=== PATIENT | male | born 1980 | race Caucasian/White ===

== ENCOUNTER 2019-03-20 13:56 | Emergency (ER) | payer SELFPAY ==
[2019-03-20 15:01] VITALS: BP 156/11; PULSE 94; RESP 16; TEMP 36.7; O2SAT 98; BMI 34.8
[2019-03-20 15:41] LABS: INR 1.01 (0.8-1.2)
[2019-03-20 15:42] LABS: Partial Thromboplastin Time 29.8 SECONDS (23.9-36.7)
--- NOTE | 2019-03-20 18:10 | ED_ITS ---
Entered by [id number], acting as scribe for Patrick Fernandes MD Mar 20, 2019 13:56 HPI - Extremity Problem General: Chief complaint: Extremity Problem,Nontraumatic Stated complaint: L leg pain Time Seen by Provider: 03/20/19 18:18 Source: patient Mode of arrival: ambulatory Limitations: no limitations History of Present Illness: HPI Narrative: 38-year-old male who has had right knee pain for the last 3 to 5 days. 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 Patient has a history of gout as well and a has been taking indomethacin. Patient denies any fevers. States that it is worse when he straightens or bends his leg. Associated symptoms: Deny chest pain, fever(s) or rash Review of Systems Const: Denies: fever or chills Eyes: Denies: change in vision ENMT: Denies: throat pain or mouth pain Card: Denies: chest pain Resp: Denies: shortness of breath GI: Denies: abdominal pain, nausea, vomiting or diarrhea Musc: Reports: joint pain and joint swelling; Denies: back pain Skin/Breast: Denies: rash Neuro: Denies: headache or behavioral changes Psych: Denies: depression Endo: Denies: excessive urination Joe/Lymph: Denies: easy bruising All/Imm: Denies: hives PFSH ED PFSH: Statuses (acute, chronic, etc) shown below reflect problem list status as previously entered and may not be historically accurate Medical History Dental caries (Acute) Gout (Acute) Social History Smoking and tobacco status: never smoked Physical Exam Const: COMMON NORMALS: no apparent distress and healthy appearing HENMT: COMMON NORMALS: normocephalic and external nose normal HEAD & SCALP: normocephalic NOSE: external nose normal and no nasal discharge (nasal dischage) Eye: COMMON NORMALS: PERRL PUPIL: Yes PERRL Neck/C-Spine: COMMON NORMALS: full ROM and no lymphadenopathy Chest: COMMONS NORMALS: inspection of chest normal Resp: COMMON NORMALS: normal respiratory effort and clear to auscultation bilaterally AUSCULTATION: clear to auscultation bilaterally Cardio: COMMON NORMALS: regular rate and regular rhythm RATE: regular rate RHYTHM: regular rhythm GI: COMMON NORMALS: soft to palpation PALPATION: Yes soft Extremity: COMMON NORMALS: normal capillary refill NARRATIVE EXTREMITY EXAM: Tenderness over right knee. No warmth to touch. Does have some swelling posterior to the knee. Psych: COMMON NORMALS: mental status grossly normal and cooperative Skin: COMMON NORMALS: no rashes or lesions noted GENERAL SKIN EXAM: no rashes or lesions noted Course Vital Signs: Vital signs: Vital Signs Temperature 98.1 F 03/20/19 15:01 Pulse Rate 94 03/20/19 20:24 Respiratory Rate 16 03/20/19 20:24 Blood Pressure 162/105 03/20/19 20:24 Pulse Oximetry 95 03/20/19 20:24 MDM - Extremity (Nontraumatic) MDM Narrative: Medical decision making narrative: Patient presents here with a clot in the superficial vein posterior knee. Patient is very sedentary and concerned this clot could advance and will place him on Eliquis. He is to follow very closely with his PCP and have repeat ultrasounds. Patient is stable for discharge and return if worsening. Lab Data: Labs: Lab Results 03/20/19 03/20/19 Range/Units 15:23 15:24 WBC 8.4 (4.0-10.0) 10^3/ uL RBC 4.59 (4.1-5.3) 10^6/u L Hgb 14.6 (11.7-16.6) g/dL Hct 43.0 (42.0-52.0) % MCV 93.7 (80-94) fL MCH 31.8 (28.0-34.0) pg MCHC 34.0 (30.0-36.0) g/dL RDW 12.5 (12.1-15.1) % Plt Count 278 (130-400) 10^3/c mm MPV 10.5 H (7.4-10.4) fL Neut % (Auto) 58.8 % Lymph % (Auto) 24.1 % [place] % (Auto) 15.3 % Eos % (Auto) 1.0 % Baso % (Auto) 0.4 % Neut # (Auto) 4.9 (1.8-7.7) 10^3/u L Lymph # (Auto) 2.0 (0.8-4.8) 10^3/u L [place] # (Auto) 1.3 H (0.2-0.9) 10^3/u L Eos # (Auto) 0.1 (0.0-0.8) 10^3/u L Baso # (Auto) 0.0 (0.0-0.1) 10^3/u L Nucleated RBC % (a uto) 0 % Nucleated RBCs # 0.0 /100WBC PT 13.60 H (10.5-13.3) SECO NDS INR 1.01 (0.8-1.2) APTT 29.8 (23.9-36.7) SECO NDS Discharge Plan Discharge Patient Disposition: Home, Self-Care Clinical Impression: Deep vein thrombosis of lower extremity Qualifiers: Chronicity: acute Laterality: unspecified laterality Condition: Stable Prescriptions: New Eliquis 5 mg (74 tabs) tablets,dose pack See Rx Instructions .ROUTE .COMPLEX Qty: 74 RF: 0 Discharge Orders: Discharge Order (Routine); Ordered 03/20/19 Ordered By: Patrick Fernandes Discharge Diet: Advance as tolerated Discharge Activity: Resume usual activity Patient Instructions: Deep Venous Thrombosis (ED) Discharge Date/Time: 03/20/19 20:09 Coding Level of Care Code ED Sanitation Worker Cleaning Equipment for Oralia Cruz The documentation recorded by the rocioibtigre, [id number], accurately reflects the service I personally performed and the decisions made by Dom sena Korby, MD Mar 20, 2019 13:56
--- NOTE | 2019-03-20 18:10 | ED_ITS ---
Entered by Jazmine Savage, acting as scribe for Patrick Fernandes MD Mar 20, 2019 13:56 HPI - Extremity Problem General: Chief complaint: Extremity Problem,Nontraumatic Stated complaint: L leg pain Time Seen by Provider: 03/20/19 18:18 History of Present Illness: HPI Narrative: 38 yo male presents with left knee pain and swelling. Pt states that he went to see his PCP at [facility] yesterday. Pt states that his knee has turned red and has gotten more painful today. Pt states that he called his PCP today, the recommened him to be seen here today. 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) Review of Systems Resp: Denies: dyspnea GI: Denies: abdominal pain, vomiting or diarrhea Neuro: Denies: headache(s) PFSH ED PFSH: Statuses (acute, chronic, etc) shown below reflect problem list status as previously entered and may not be historically accurate Medical History (Updated 03/28/19 @ 00:00 by ) Dental caries Gout Social History Smoking and tobacco status: never smoked Physical Exam Const: COMMON NORMALS: no acute distress and healthy appearing HENMT: COMMON NORMALS: normocephalic and Normal external nose present HEAD & SCALP: normocephalic NOSE: Normal external nose present and No nasal discharge present (nasal dischage) Eye: COMMON NORMALS: Equal, round and reactive pupils present PUPIL: Yes Equal, round and reactive pupils present Neck/C-Spine: COMMON NORMALS: full ROM and no lymphadenopathy Chest: COMMONS NORMALS: normal inspection of the chest Resp: COMMON NORMALS: normal respiratory effort and clear to auscultation bilaterally AUSCULTATION: clear to auscultation bilaterally Cardio: COMMON NORMALS: regular rate and regular rhythm RATE: regular rate RHYTHM: regular rhythm GI: COMMON NORMALS: Soft to palpation PALPATION: Yes Soft to palpation Extremity: COMMON NORMALS: capillary refill normal; negative for normal to inspection and negative for full ROM Psych: COMMON NORMALS: mental status grossly normal and cooperative Skin: COMMON NORMALS: no rashes or lesions noted GENERAL SKIN EXAM: no rashes or lesions noted Course Vital Signs: Vital signs: Vital Signs Temperature 98.1 F 03/20/19 15:01 Pulse Rate 94 03/20/19 20:24 Respiratory Rate 16 03/20/19 20:24 Blood Pressure 162/105 03/20/19 20:24 Pulse Oximetry 95 03/20/19 20:24 MDM - Extremity (Nontraumatic) Lab Data: Labs: Lab Results 03/20/19 03/20/19 Range/Units 15:23 15:24 WBC 8.4 (4.0-10.0) 10^3/ uL RBC 4.59 (4.1-5.3) 10^6/u L Hgb 14.6 (11.7-16.6) g/dL Hct 43.0 (42.0-52.0) % MCV 93.7 (80-94) fL MCH 31.8 (28.0-34.0) pg MCHC 34.0 (30.0-36.0) g/dL RDW 12.5 (12.1-15.1) % Plt Count 278 (130-400) 10^3/c mm MPV 10.5 H (7.4-10.4) fL Neut % (Auto) 58.8 % Lymph % (Auto) 24.1 % [place] % (Auto) 15.3 % Eos % (Auto) 1.0 % Baso % (Auto) 0.4 % Neut # (Auto) 4.9 (1.8-7.7) 10^3/u L Lymph # (Auto) 2.0 (0.8-4.8) 10^3/u L [place] # (Auto) 1.3 H (0.2-0.9) 10^3/u L Eos # (Auto) 0.1 (0.0-0.8) 10^3/u L Baso # (Auto) 0.0 (0.0-0.1) 10^3/u L Nucleated RBC % (a uto) 0 % Nucleated RBCs # 0.0 /100WBC PT 13.60 H (10.5-13.3) SECO NDS INR 1.01 (0.8-1.2) APTT 29.8 (23.9-36.7) SECO NDS Discharge Plan Discharge Patient Disposition: Home Clinical Impression: Deep vein thrombosis of lower extremity Condition: Stable Prescriptions: New Eliquis DVT-PE Treat 30D Start 5 mg (74 tabs) tablets,dose pack See Rx Instructions .ROUTE .COMPLEX Qty: 74 RF: 0 Discharge Orders: Discharge Order (Routine); Ordered 03/20/19 Ordered By: Patrick Fernandes Discharge ED (Routine); Ordered 03/31/20 Ordered By: Patrick Fernandes Discharge Diet: Advance as tolerated Discharge Activity: Resume usual activity Patient Instructions: Deep Venous Thrombosis (ED) Coding Level of Care Code ED Sap Pp Consultant for Chg Fwd Exam Problem Focused The documentation recorded by the Hussein bowen Kialy, accurately reflects the service I personally performed and the decisions made by Dom sena Korby, MD Mar 20, 2019 13:56
--- NOTE | 2019-03-20 18:23 | USCV_ITS ---
Wali Canales Age: 38 Gender: M : 1980 Exam Date: 03/20/2019 18:23 Ordering Phys: Patrick Fernandes MD Technologist: Belinda An Exam Location: [facility] – [place] Indication: SWELLING HISTORY: Lower extremity swelling. PROCEDURES: Venous duplex imaging was performed in only the left lower extremity. The following venous structures were evaluated: common femoral vein, profunda vein, proximal portion of the greater saphenous vein, superficial femoral vein, and the popliteal vein. In addition, the posterior tibial and peroneal trunk were evaluated. Serial compression, augmentation maneuvers, and spectral Doppler flow evaluation were performed. FINDINGS: Normal 2-D Doppler and augmentation and compressibility throughout the lower extremity venous structures. Additional imaging through the proximal calf veins also reveals no thrombus. Limited evaluation of the greater saphenous vein is patent with no thrombus. Evidence of SVT see in a accessory johnny of the GSV at the knee/above the knee level. CONCLUSIONS No DVT left lower extremity. Focal superficial thrombophlebitis accessory vein GSV. Dr. Ella Delgadillo DO (Electronically Signed) Final Date: 21 March 2019 08:50 S
[2019-03-20 18:40] LABS: Basophils % 0.4 %; Eosinophils # 0.1 10^3/uL (0.0-0.8); Hemoglobin 14.6 g/dL (11.7-16.6); Lymphocytes % 24.1 %; Mean Corpuscular Hemoglobin 31.8 pg (28.0-34.0); Mean Corpuscular Volume 93.7 fL (80-94); Mean Platelet Volume 10.5 fL (7.4-10.4); Monocytes # 1.3 10^3/uL (0.2-0.9); Monocytes % 15.3 %; Neutrophils # 4.9 10^3/uL (1.8-7.7); Neutrophils % 58.8 %; Nucleated Red Blood Cells % 0 %; Platelet Count 278 10^3/cmm (130-400); Red Blood Count 4.59 10^6/uL (4.1-5.3); Red Cell Distribution Width 12.5 % (12.1-15.1); White Blood Count 8.4 10^3/uL (4.0-10.0)
[2019-03-20] MEDS: HYDROcodone-acetaminophen 5-325 mg Tablet 1 TAB PO (19:53)
[2019-03-20 20:24] VITALS: BP 162/105; PULSE 94; RESP 16; O2SAT 95
== END 2019-03-20 20:09 | disposition home or self-care (01) ==
PROVIDERS: Emergency Medicine; Emergency Provider Emergency Medicine
DX: I82.402 Acute embolism and thrombosis of unspecified deep veins of left lower extremity (principal)
CPT/HCPCS: 36415; 85025; 85610; 85730; 93971; 99281; 99283

== ENCOUNTER 2019-04-15 11:04 | Outpatient (CLI) | payer SELFPAY ==
--- NOTE | 2019-04-15 11:16 | USCV_ITS ---
Wali Canales Age: 38 Gender: M : 1980 Exam Date: 04/15/2019 11:36 Ordering Phys: Daphney Camacho NP Technologist: Susie Linares [place] [facility] [place]: FU ON DVT HISTORY: History of superficial thrombus in assc of Lt GSV PROCEDURES: Venous duplex imaging was performed in only the left lower extremity. The following venous structures were evaluated: common femoral vein, profunda vein, proximal portion of the greater saphenous vein, superficial femoral vein, and the popliteal vein. In addition, the posterior tibial and peroneal trunk were evaluated. Serial compression, augmentation maneuvers, and spectral Doppler flow evaluation were performed. FINDINGS: No DVT noted in any vessel examined No superficial thrombus seen in any vessel examined CONCLUSIONS No evidence of left lower extremity DVT or superficial thrombus. Jimmie Berumen MD (Electronically Signed) Final Date: 15 April 2019 13:02 S
== END 2019-04-15 11:05 | disposition home or self-care (01) ==
LOC: RAD 11:11
PROVIDERS: PCP Nurse Practitioner Family; Visit Provider Nurse Practitioner Family
DX: I82.409 Acute embolism and thrombosis of unspecified deep veins of unspecified lower extremity (principal)
CPT/HCPCS: 93971

== ENCOUNTER 2020-12-16 21:10 | Emergency (ER) | payer SELFPAY ==
[2020-12-16 21:27] VITALS: BP 174/84; PULSE 113; RESP 18; TEMP 38.1; O2SAT 96; BMI 36.2
--- NOTE | 2020-12-16 22:04 | W.ED.SOB ---
HPI - SOB/Dyspnea General: Chief Complaint: Shortness of Breath/Dyspnea Stated Complaint: SOB\Cough\Fever Time Seen by Provider: 12/16/20 22:04 History of Present Illness: HPI Narrative: Mr. Abad is a 40-year-old gentleman with history of suspected provoked DVT due to immobilization who presents emergency department due to cough, headache, and generalized malaise. Symptom onset was approximately 1 week ago and initially experienced cough which has mildly been worsening and is only minimally productive. Last night he started developing fever. He has associated generalized malaise, headache. Overall the course of symptoms is moderate in intensity and has mildly been worsening. He endorses sick contacts. He was previously treated for a suspected provoked DVT however he completed therapy and was removed from anticoagulation by a physician. No other specific exacerbating or alleviating factors. No other symptoms identified Review of Systems General: Reports: 10 or more systems reviewed and unremarkable except in HPI and below PFSH ED PFSH: Medical History (Updated 12/17/20 @ 01:16 by Tommy Heath MD) Dental caries Gout Social History Smoking and tobacco status: never smoked Physical Exam Narrative: EXAM NARRATIVE: GENERAL/CONSTITUTIONAL -mildly ill-appearing. No acute distress. Eyes - PERRL, no conjunctival injection ENMT - Atraumatic external nose and ears. Moist mucous membranes NECK - supple. trachea midline CARDIOVASCULAR -tachycardic rate and regular rhythm. RESPIRATORY -coarse to auscultation bilaterally at the bases. No retractions or accessory muscle use. ABDOMEN/GI - Nontender/Nondistended. MSK - Extremities without obvious deformity or tenderness to palpation SKIN - Warm, Dry NEURO - alert and appropriately oriented. Moves all extremities equally. Course ED course: - Patient was seen and evaluated by me at bedside - Patient placed on cardiac monitors, IV access obtained - Initial evaluation notable for no acute distress, nontoxic appearance, mild tachycardia associated with fever -Symptom treatment ordered - Labs notable for no significant hematologic abnormality. Mild likely dehydration noted on metabolic panel. Minimal elevation in ALT, procalcitonin negative. Covid positive - Imaging notable for no acute finding - Upon serial reexamination after treatment the patient was mildly improved. Patient is not requiring oxygen and heart rate improved with minimal fluids. COVID-19 explains all of patient's symptoms - The results of ED evaluation were discussed with the patient including prescriptions and/or symptomatic cares (if applicable) including appropriate and responsible use, followup plan, and return precautions. The patient verbalized understanding and felt safe for discharge. - Patient discharged in satisfactory condition. Vital Signs: Vital signs: Vital Signs Temperature 100.6 F H 12/16/20 21:27 Pulse Rate 88 12/17/20 01:43 Respiratory Rate 24 H 12/17/20 01:43 Blood Pressure 164/80 12/17/20 01:43 Pulse Oximetry 98 12/17/20 01:43 MDM - SOB/Dyspnea Medical Records: Attestation: I reviewed the patient's medical records. Lab Data: Attestation: I reviewed the patient's lab results. Labs: Lab Results 12/16/20 12/16/20 12/16/20 23:00 23:00 23:10 WBC 4.7 10^3/uL 10^3/ uL (4.0-10.0) RBC 4.63 10^6/uL 10^6 /uL (4.1-5.3) Hgb 14.6 g/dL g/dL (11.7-16.6) Hct 42.2 % % (42.0-52.0) MCV 91.1 fl fl (80-94) MCH 31.5 pg pg (28.0-34.0) MCHC 34.6 g/dL g/dL (30.0-36.0) RDW 12.9 % % (12.1-15.1) Plt Count 211 10^3/cmm 10^3 /cmm (130-400) MPV 10.3 fL fL (7.4-10.4) Neut % (Auto) 66.4 % % Lymph % (Auto) 10.9 % % [place] % (Auto) 21.3 % % Eos % (Auto) 0.6 % % Baso % (Auto) 0.6 % % Neut # (Auto) 3.11 10^3/uL 10^3 /uL (1.8-7.7) Lymph # (Auto) 0.5 10^3/uL L 10^ 3/uL (0.8-4.8) [place] # (Auto) 1.0 10^3/uL H 10^ 3/uL (0.2-0.9) Eos # (Auto) 0.0 10^3/uL 10^3/ uL (0.0-0.8) Baso # (Auto) 0.0 10^3/uL 10^3/ uL (0.0-0.1) Nucleated RBC % (a uto) 0 % % Nucleated RBCs # 0.0 /100WBC /100W BC Sodium 132 mmol/L L mmol /L (136-145) Potassium 3.9 mmol/L mmol/L (3.5-5.1) Chloride 97 mmol/L L mmol/ L (98-107) Carbon Dioxide 22 mmol/L mmol/L (22-29) Anion Gap 16.9 (5-19) BUN 14 mg/dL mg/dL (6-20) Creatinine 1.2 mg/dL mg/dL (0.7-1.2) GFR Calculation 66.4 mL/min L mL/ min (90-130) Glucose 92 mg/dL mg/dL (65-115) Calculated Osmolal ity 274 mOsm/kg L mOs m/kg (285-295) Calcium 9.2 mg/dL mg/dL (8.5-10.5) Total Bilirubin 0.2 mg/dL mg/dL (0.15-1.2) AST 23 U/L U/L (0-40) ALT 42 U/L H U/L (0-41) Alkaline Phosphata se 62 IU/L IU/L (40-130) C-Reactive Protein 13.8 mg/L H mg/L (0.0-4.9) Total Protein 7.8 g/dL g/dL (6.6-8.7) Albumin 4.4 g/dL g/dL (3.5-5.2) Globulin 3.4 g/dL g/dL (1.3-4.6) Procalcitonin 0.15 ng/mL ng/mL (0-0.5) SARS-CoV-2 Ag (Rap id) Positive H (Negative) Discharge Plan Discharge Patient Disposition: Home Clinical Impression: COVID-19 Condition: Stable Prescriptions: No Action Eliquis DVT-PE Treat 30D Start 5 mg (74 tabs) tablets,dose pack See Rx Instructions .ROUTE .COMPLEX Qty: 74 RF: 0 Discharge Orders: Discharge ED (Routine); Ordered 12/17/20 Ordered By: Tommy Heath Discharge Diet: Usual diet Discharge Activity: Resume usual activity Patient Instructions: COVID-19 (Coronavirus Disease 2019) (ED) Activity Restrictions/Additional Instructions: Thank you for visiting the emergency department. You were seen and evaluated for respiratory symptoms. You were found to have COVID-19. Please followup with your PCP. Return as needed. Coding Level of Care Code ED Powder Core Tester for Oralia Cruz
--- NOTE | 2020-12-16 22:12 | XRR_ITS ---
PROCEDURE INFORMATION: Exam: XR Chest Exam date and time: 12/16/2020 10:12 PM Age: 40 years old Clinical indication: Cough and fever and shortness of breath TECHNIQUE: Imaging protocol: XR of the chest. Views: 1 view. COMPARISON: No relevant prior studies available. FINDINGS: Lungs: Unremarkable. No consolidation. Pleural spaces: Unremarkable. No pleural effusion. No pneumothorax. Heart/Mediastinum: Unremarkable. No cardiomegaly. Bones/joints: Unremarkable. XR/XR chest 1V portable [id number] IMPRESSION: No acute findings. Radiation Dose CTDIVOL = (mGy): DLP = (mGy-cm)
[2020-12-16] MEDS: lactated ringers 1,000 ML 999 ML IV (23:05)
[2020-12-16 23:49] LABS: Basophils % 0.6 %; Eosinophils % 0.6 %; Hematocrit 42.2 % (42.0-52.0); Hemoglobin 14.6 g/dL (11.7-16.6); Lymphocytes # 0.5 10^3/uL (0.8-4.8); Lymphocytes % 10.9 %; Mean Corpuscular HGB Conc 34.6 g/dL (30.0-36.0); Mean Corpuscular Hemoglobin 31.5 pg (28.0-34.0); Mean Corpuscular Volume 91.1 fl (80-94); Mean Platelet Volume 10.3 fL (7.4-10.4); Monocytes % 21.3 %; Neutrophils # 3.11 10^3/uL (1.8-7.7); Neutrophils % 66.4 %; Nucleated Red Blood Cells % 0 %; Platelet Count 211 10^3/cmm (130-400); Red Blood Count 4.63 10^6/uL (4.1-5.3); Red Cell Distribution Width 12.9 % (12.1-15.1); White Blood Count 4.7 10^3/uL (4.0-10.0)
[2020-12-16] MEDS: acetaminophen 325 mg Tablet 650 MG PO (23:49)
[2020-12-17 00:07] LABS: SARS Covid-2 Antigen Positive (Negative)
[2020-12-17 00:17] LABS: Alanine Aminotransferase 42 U/L (0-41); Albumin Level 4.4 g/dL (3.5-5.2); Alkaline Phosphatase 62 IU/L (40-130); Anion Gap 16.9 (5-19); Aspartate Amino Transferase 23 U/L (0-40); Blood Urea Nitrogen 14 mg/dL (6-20); C Reactive Protein 13.8 mg/L (0.0-4.9); Calcium 9.2 mg/dL (8.5-10.5); Carbon Dioxide 22 mmol/L (22-29); Chloride 97 mmol/L (98-107); Globulin 3.4 g/dL (1.3-4.6); Glomerular Filtration Rate 66.4 mL/min (90-130); Glucose 92 mg/dL (65-115); Osmolality Calculated 274 mOsm/kg (285-295); Potassium 3.9 mmol/L (3.5-5.1); Sodium 132 mmol/L (136-145); Total Bilirubin 0.2 mg/dL (0.15-1.2); Total Protein 7.8 g/dL (6.6-8.7)
[2020-12-17 00:24] LABS: Procalcitonin 0.15 ng/mL (0-0.5)
[2020-12-17 00:49] VITALS: BP 164/88; PULSE 88; RESP 24; O2SAT 98
[2020-12-17 01:43] VITALS: BP 164/80; PULSE 88; RESP 24; O2SAT 98
== END 2020-12-17 01:40 | disposition home or self-care (01) ==
PROVIDERS: Emergency Provider Emergency Medicine
DX: U07.1 COVID-19 (principal); Z79.01 Long term (current) use of anticoagulants
CPT/HCPCS: 71045; 80053; 84145; 85025; 86140; 87426; 96360; 99283

== ENCOUNTER 2020-12-21 20:07 | Emergency (ER) | payer SELFPAY ==
--- NOTE | 2020-12-21 20:09 | XRR_ITS ---
PROCEDURE INFORMATION: Exam: XR Chest Exam date and time: 12/21/2020 8:09 PM Age: 40 years old Clinical indication: Cough and shortness of breath; Patient HX: Covid +; Additional info: SOB TECHNIQUE: Imaging protocol: XR of the chest. Views: 1 view. COMPARISON: CR (CHEST, ) 12/16/2020 10:24 PM FINDINGS: Lungs: There are patchy bilateral pulmonary opacities which may be secondary to pneumonia or COVID-19. Pleural spaces: Unremarkable. No pleural effusion. No pneumothorax. Heart/Mediastinum: Unremarkable. No cardiomegaly. Bones/joints: Unremarkable. XR/XR chest 1V portable [id number] IMPRESSION: There are patchy bilateral pulmonary opacities which may be secondary to pneumonia or COVID-19. Radiation Dose CTDIVOL = (mGy): DLP = (mGy-cm)
[2020-12-21 20:30] VITALS: BP 108/74; PULSE 108; RESP 22; TEMP 38.5; O2SAT 93; BMI 36.2
--- NOTE | 2020-12-22 00:22 | PC.NURSE ---
not in room when check before midnight
== END 2020-12-22 00:22 | disposition left against medical advice (07) ==
DX: Z53.21 Procedure and treatment not carried out due to patient leaving prior to being seen by health care provider (principal)
CPT/HCPCS: 71045

== ENCOUNTER 2020-12-22 11:21 | Outpatient (CLI) | payer SELFPAY ==
[2020-12-22 12:00] VITALS: BP 118/76; PULSE 76; RESP 18; TEMP 37; O2SAT 94
[2020-12-22 12:29] VITALS: BMI 36.2
[2020-12-22 13:02] VITALS: BP 123/76; PULSE 89; RESP 20; O2SAT 94
[2020-12-22 14:02] VITALS: BP 133/82; PULSE 71; RESP 20; TEMP 37.9; O2SAT 94
== END 2020-12-22 11:22 | disposition home or self-care (01) ==
LOC: OPS 11:26
PROVIDERS: Visit Provider Emergency Medicine
DX: U07.1 COVID-19 (principal)
CPT/HCPCS: 96365